=== PATIENT | female | born 1995 ===

== ENCOUNTER → 2022-06-07 16:46 | Outpatient (CLI) | payer OTHER, SELFPAY ==
--- NOTE | 2022-06-07 16:49 | DI.US.S_ITS ---
PROCEDURE: US OB <= 14 WEEKS FETUS INDICATIONS: Dating and viability OUTSIDE/PRIOR DATING DATA: Last menstrual period (LMP): 04/25/2022 LMP-based estimated date of delivery (JOANN): 01/30/2023. First dating scan (date and location): 06/07/2022. Estimated date of delivery (JOANN) from first dating scan: 02/01/2023. The calculations are made using the JOANN of 02/01/2023. TECHNIQUE: Real-time scanning was performed of the fetus and maternal pelvic organs, with image documentation. Endovaginal scanning was also performed to better visualize the fetus and maternal ovaries. COMPARISON: None. FINDINGS: [place]-rump length 2.8 millimeters. This corresponds to a gestational age of 5 weeks 6 days. Small perigestational hemorrhage measuring 1.1 centimeters. Right ovarian corpus luteum cyst. Bilateral simple physiologic cyst measuring up to 3 centimeters. IMPRESSION: Single living intrauterine gestation with an estimated gestational age of 5 weeks 6 days. We strive to produce accurate, complete, and clear reports of imaging services. To assist us in improving patient care, this report was composed using standard report templates and voice recognition software. Therefore, it may contain abnormal punctuation, insertions and/or omissions. Occasional wrong-word or sound-alike substitutions may occur. Though we review the report and make efforts to correct it, we do recommend that the report be read carefully in proper context to recognize any text inaccuracies. Dictated by: Kris Thornton M.D. on 06/08/2022 at 14:41 Approved by: Kris Thornton M.D. on 06/08/2022 at 15:07
[2022-06-07 17:29] LABS: Add Manual Diff / Slide Review NO; Basophils Absolute Auto 0 /uL (0-100); Basophils Percent Auto 0.4 % (0-2); Eosinophils Absolute Auto 100 /uL (0-450); Hematocrit 36.9 % (36-46); Hemoglobin 12.7 g/dL (12.0-16.0); Lymphocytes Absolute Auto 2400 /uL (1100-4500); Lymphocytes Percent Auto 24.5 % (25-40); Mean Corpuscular HGB Conc 34.4 % (30-36); Mean Corpuscular Hemoglobin 32.3 PG (26-34); Mean Corpuscular Volume 93.8 fL (80-100); Monocytes Absolute Auto 600 /uL (0-900); Monocytes Percent Auto 6.2 % (3-14); Neutrophils Absolute Auto 6700 /uL (1500-7000); Neutrophils Percent Auto 67.9 % (50-75); Platelet Count 274 X10^3/uL (150-400); Red Blood Cell Count 3.93 X10^6/uL (4.0-5.2); Red Cell Distribution Width 12.4 % (11.6-14.8); White Blood Cell Count 9.9 X10^3/uL (4.5-11.0)
[2022-06-07 18:30] LABS: Hepatitis B Surface Antigen NEGATIVE s/c (NEGATIVE); Rubella Antibody IgG 12.9 IU/mL (>15)
[2022-06-07 18:51] LABS: HIV 1 & 2 Ab/Ag 4th Gen Combo NEGATIVE (NEGATIVE); Hep C Virus Ab w/Reflex Quant NEGATIVE s/c (NEGATIVE)
[2022-06-08 06:29] LABS: RPR Screen Non Reactive (Non Reactive)
[2022-06-08 07:18] LABS: Varicella IgG Antibody <135 index (Immune >165)
== END ==
PROVIDERS: Referring Provider Obstetrics & Gynecology; Visit Provider Obstetrics & Gynecology
DX: Z34.81 Encounter for supervision of other normal pregnancy, first trimester (principal); Z3A.01 Less than 8 weeks gestation of pregnancy
CPT/HCPCS: 36415; 76801; 76830; 80055; 86787; 86803; 86850; 86900; 86901; 87389

== ENCOUNTER → 2022-06-25 17:46 | Outpatient (CLI) | payer OTHER, SELFPAY ==
--- NOTE | 2022-06-25 17:47 | DI.US.S_ITS ---
PROCEDURE: US OB <= 14 WEEKS FETUS INDICATIONS: f/u perigestational hemorrhage OUTSIDE/PRIOR DATING DATA: Last menstrual period (LMP): 04/25/2022 LMP-based estimated date of delivery (JOANN): 01/30/2023 First dating scan (date and location): 06/07/2022 Estimated date of delivery (JOANN) from first dating scan: 02/01/2023 TECHNIQUE: Real-time scanning was performed of the fetus and maternal pelvic organs, with image documentation. Endovaginal scanning was also performed to better visualize the fetus and maternal ovaries. COMPARISON: [facility], OB <= 14 WEEKS FETUS, 06/07/2022, 17:16. FINDINGS: Embryo: Intrauterine gestation is present. Heart rate: 171 beats per minute [place]-rump length measuring up to 8 weeks and 4 days. This is concordant with prior imaging. Maternal organs: Within normal limits. Resolved perigestational hemorrhage. IMPRESSION: Resolved perigestational hemorrhage. Concordant dating on today's crown rump length compared to prior imaging. We strive to produce accurate, complete, and clear reports of imaging services. To assist us in improving patient care, this report was composed using standard report templates and voice recognition software. Therefore, it may contain abnormal punctuation, insertions and/or omissions. Occasional wrong-word or sound-alike substitutions may occur. Though we review the report and make efforts to correct it, we do recommend that the report be read carefully in proper context to recognize any text inaccuracies. Dictated by: Librado Arndt M.D. on 06/25/2022 at 18:43 Approved by: Librado Arndt M.D. on 06/25/2022 at 18:44
== END ==
PROVIDERS: Referring Provider Obstetrics & Gynecology; Visit Provider Obstetrics & Gynecology
DX: Z36.2 Encounter for other antenatal screening follow-up (principal); Z3A.08 8 weeks gestation of pregnancy
CPT/HCPCS: 76801